=== PATIENT | male | born 1945 | race Caucasian/White ===

== ENCOUNTER 2017-03-09 09:21 | Emergency (ER) | payer OTHER ==
[~2017-03-09] VITALS: Ht 170.1 cm; Wt 83.5 kg
[~2017-03-09 09:21] MED LIST: AMITRIPTYLINE25 MG PO; ASPIRIN325 MG PO; B12100 MC1 PO; BACLOFEN20 M1 PO; CALCIUM + D 6001 TA1 PO; COMBIVENT1 AR1; GABAPENTIN400 MG PO; ISOSORBIDE MONO30 MG PO; LEVOFLOXACIN500 MG PO; LOPRESSOR25 MG; MULTIVITAMIN1 CTB PO; OMEPRAZOLE20 MG PO; PRIMIDONE50 MG PO; SIMVASTATIN40 MG PO; TYLENOL WITH CO1 TA1 PO; TYLENOL325 M1 PO; VICODIN 5/500 505 MG PO; [UNRECOGNIZED DRUG - OTHER]
[2017-03-09 09:28] VITALS: BP 185/89
[2017-03-09] MEDS ORDERED: OXYCODONE5 M1 PO (09:35)
[2017-03-09] MEDS ORDERED: ASPIR LOW81 MG PO (09:35)
[2017-03-09] MEDS ORDERED: MOTRIN 600 MG E4 TAB PO (09:36)
== END 2017-03-09 13:15 | disposition short-term general hospital (02) ==
LOC: ED 09:21
DX: M54.16 Radiculopathy, lumbar region (principal); R25.1 Tremor, unspecified; Z79.82 Long term (current) use of aspirin; Z79.899 Other long term (current) drug therapy

== ENCOUNTER 2024-01-27 10:48 | Emergency (ER) | payer OTHER ==
[~2024-01-27 10:48] MED LIST changes: +ASPIR LOW81 MG PO; +MOTRIN 600 MG E4 TAB PO; +OXYCODONE5 M1 PO
[2024-01-27] MEDS ORDERED: MORPHINE Sulfate 2 MG/ML SYR IV ONE ×2 (11:05→16:00)
[2024-01-27] MEDS ORDERED: SODIUM CHLORIDE 0.9% 1,000 ML IV ONE (11:05)
[2024-01-27 11:22] LABS: BASO # 0.1 10*3/uL (0.0-0.1); BASO % 0.6 % (0.0-1.0); EOS % 0.4 % (1.0-4.0); LYMPH # 1.2 10*3/uL (1.3-4.4); LYMPH % 14.1 % (27.0-41.0); MEAN CELL VOLUME 91.3 fl (80.0-94.0); MEAN CORPUSCULAR HGB 30.6 pg (27.0-31.0); MEAN CORPUSCULAR HGB CONC 33.5 g/dl (33.0-37.0); MEAN PLATELET VOLUME 8.7 fl (9.6-12.3); MONO # 0.7 10*3/uL (0.1-1.0); MONO % 8.3 % (3.0-9.0); NEUT # 6.5 10*3/uL (2.3-7.9); PLATELET COUNT AUTOMATED 256 10*3/uL (130-400); RED BLOOD COUNT 5.26 10*6/uL (4.50-5.90); WHITE BLOOD COUNT 8.5 10*3/uL (4.8-10.8)
[2024-01-27] MEDS ORDERED: VITAMIN B121000 MC3 PO (11:22)
[2024-01-27] MEDS ORDERED: TAMSULOSIN HCL0.4 MG PO (11:22)
[2024-01-27] MEDS ORDERED: PROPRANOLOL HCL10 MG PO (11:23)
[2024-01-27] MEDS ORDERED: CALCIUM CITRAT1 EA18 PO (11:24)
[2024-01-27] MEDS ORDERED: ALENDRONATE SOD70 M1 PO (11:26)
[2024-01-27 11:33] LABS: ACT PARTIAL THROMBO TIME 24.6 SECONDS (20.0-32.1)
[2024-01-27 11:44] LABS: ALKALINE PHOSPHATASE 73 U/L (46-116); BUN 11 mg/dl (9-23); CHLORIDE 104 mmol/L (98-107); LIPASE 42 U/L (12-53); POTASSIUM 3.7 mmol/L (3.4-5.1); SGPT/ALT 28 U/L (5-49); TOTAL PROTEIN 7.8 gm/dL (6.0-8.0)
[2024-01-27 12:48] LABS: BILIRUBIN Negative (Negative); BLOOD Negative (Negative); CLARITY Clear (Clear); COLOR Dark Yellow (Yellow); GLUCOSE Negative (Negative); KETONE 1+ (Negative); LEUKO ESTERASE 1+ (Negative); NITRITE Negative (Negative); PH 5.5 (4.5-8.0); UROBILINOGEN 0.2 E.U./dl (0.0-1.0)
[2024-01-27 13:08] LABS: BACTERIA 1+; WBC TNTC wbc/hpf (0-5)
[2024-01-27] MEDS ORDERED: Ceftriaxone Sodium 1 GM/10 ML SYR IV ONE (13:40)
[2024-01-27] MEDS ORDERED: Ondansetron Hydrochloride 4 MG/2 ML VIAL IV ONE (16:00)
[2024-01-27 17:40] VITALS: BP 164/92
== END 2024-01-27 19:23 | disposition short-term general hospital (02) ==
LOC: ED 10:48
PROVIDERS: Physician Assistant Medical
DX: R91.1 Solitary pulmonary nodule (principal); N39.0 Urinary tract infection, site not specified; C79.9 Secondary malignant neoplasm of unspecified site; I10 Essential (primary) hypertension; Z98.890 Other specified postprocedural states; Z95.5 Presence of coronary angioplasty implant and graft; I25.2 Old myocardial infarction